=== PATIENT | female | born 1970 | race Caucasian/White ===

== ENCOUNTER 2019-01-30 00:16 | Emergency (ER) | payer BC, OTHER ==
[~2019-01-30] VITALS: Ht 157.5 cm; Wt 61.2 kg
--- OUTSIDE RECORDS SUMMARY | 2019-01-30 00:19 | XMS REPORT | Continuity of Care Document ---
Author Author [facility] Address Unknown Phone Unavailable Care Team Providers Care Senior Quality Methods Specialist Name Role Phone [facility] [place] [facility] Unavailable Unavailable Problems Problem Status Onset Date Classification Date Reported Comments Source Discharge Diagnosis: Abdominal pain 11/12/2016 11/15/2016 [facility] Discharge Diagnosis: IBS 11/12/2016 11/15/2016 [facility] ABD PAIN Active 11/11/2016 [facility] Abdominal pain Active Problem 11/15/2016 [facility] Cholelithiasis Active Problem 11/15/2016 [facility] Medications Medication Details Route Status Patient Instructions Ordering Provider Order Date Source tramadol hydrochloride 50 MG Oral Tablet 50 mg=1 tab, PO, Q6H, PRN Pain, X 10 day, # 40 tab, 0 Refill(s) Active 11/12/2016 [facility] potassium chloride 10 mEq, 100 mL, Route: IVPB, Drug form: INJ, Q1H, Dosing Weight 54.545, kg, Total Dose=20 meq, Start date: 11/12/16 2:00:00 CDT, Duration: 2 doses or times, Stop date: 11/12/16 3:00:00 CDT, Peripheral LineNotes: Infuse at a rate of 10 mEq/hr. (Same as: KCL) Inactive 11/12/2016 [facility] Benadryl 50 mg, Route: IVP, ONCE, Dosing Weight 54.545, kg, Priority: STAT, Start date: 11/12/16 1:28:00 CDT, Stop date: 11/12/16 1:28:00 CDT Inactive 11/12/2016 [facility] Solu-Medrol 125 mg, Route: IVP, ONCE, Dosing Weight 54.545, kg, Priority: STAT, Start date: 11/12/16 1:28:00 CDT, Stop date: 11/12/16 1:28:00 CDT Inactive 11/12/2016 [facility] Magnesium Sulfate 2 gm, 50 mL, Route: IVPB, Drug form: INJ, ONCE, Dosing Weight 54.545, kg, Start date: 11/12/16 1:12:00 CDT, Duration: 2 hr, Stop date: 11/12/16 1:12:00 CDTNotes: WASTE: F/P - Sink; E - Municipal Trash Bin Inactive 11/12/2016 [facility] Potassium Chloride 1.33 MEQ/ML Oral Solution 60 mEq, Route: PO, Drug form: LIQ, ONCE, Dosing Weight 54.545, kg, Priority: STAT, Start date: 11/12/16 1:12:00 CDT, Stop date: 11/12/16 1:12:00 CDT Inactive 11/12/2016 [facility] Saline Flush 0.9% 10 mL, Route: IVP, Drug Form: INJ, Dosing Weight 54.545, kg, PRN, PRN Line Flush, Start date: 11/11/16 23:18:00 CDT, Duration: 30 day, Stop date: 12/11/16 23:17:00 CDTNotes: (Same as: BD Posiflush) No Longer Active 11/12/2016 [facility] Allergies, Adverse Reactions, Alerts Substance Category Reaction Severity Reaction type Status Date Reported Comments Source hydrocodone Assertion Drug allergy Active [facility] iodine Assertion Drug allergy Active [facility] Latex Assertion Drug allergy Active [facility] sulfa drugs Assertion Drug allergy Active [facility] Immunizations No Data Provided for This Section Results Order Name Results Value Reference Range Date Interpretation Comments Source PARATHYROID PROFILE Ca Ion WB 1.16 1.05 - 1.25 11/12/2016 [facility] PARATHYROID PROFILE Ca Norm WB 1.12 1.05 - 1.25 11/12/2016 [facility] URINE AND STOOL UA Mucus Few /LPF None Seen /LPF 11/12/2016 [facility] URINE AND STOOL UA RBC 1 0 - 2 11/12/2016 [facility] URINE AND STOOL UA WBC 1 0 - 5 11/12/2016 [facility] URINE AND STOOL UA Sq Epi Occasional /LPF Few /LPF 11/12/2016 [facility] URINE AND STOOL UA Leuk Est Negative (11/12/16 12:14 AM) Negative 11/12/2016 [facility] URINE AND STOOL UA Protein Negative mg/dL Negative mg/dL 11/12/2016 [facility] URINE AND STOOL UA pH 6.0 5.0 - 8.0 11/12/2016 [facility] URINE AND STOOL UA Spec Grav 1.013 <=1.030 11/12/2016 [facility] URINE AND STOOL UA Turbidity Clear (11/12/16 12:14 AM) Clear 11/12/2016 [facility] URINE AND STOOL UA Urobilinogen <=1.0 mg/dL 0.1 - 1.0 11/12/2016 [facility] URINE AND STOOL UA Color Ltyellow 11/12/2016 [facility] URINE AND STOOL UA Nitrite Negative (11/12/16 12:14 AM) Negative 11/12/2016 [facility] URINE AND STOOL UA Blood Small *ABN* (11/12/16 12:14 AM) Negative 11/12/2016 [facility] URINE AND STOOL UA Bili Negative *NA* (11/12/16 12:14 AM) Negative 11/12/2016 [facility] URINE AND STOOL UA Ketones Negative mg/dL Negative mg/dL 11/12/2016 [facility] URINE AND STOOL UA Glucose Negative mg/dL Negative mg/dL 11/12/2016 [facility] URINE CHEM U Preg Negative (11/12/16 12:14 AM) Negative 11/12/2016 [facility] CHEM PANEL Lipase Lvl 109 73 - 393 11/12/2016 [facility] CHEM PANEL eGFR 129 11/12/2016 Result Comment: The eGFR is calculated using the CKD-EPI formula. In most young, healthy individuals the eGFR will be >90 mL/min/1.73m2. The eGFR declines with age. An eGFR of 60-89 may be normal in some populations, particularly the elderly, for whom the CKD-EPI formula has not been extensively validated. Use of the eGFR is not recommended in the following populations:

Individuals with unstable creatinine concentrations, including patients and those with serious co-morbid conditions.

Patients with extremes in muscle mass or diet.

The data above are obtained from the National Kidney Disease Education Program (NKDEP) which additionally recommends that when the eGFR is used in patients with extremes of body mass index for purposes of drug dosing, the eGFR should be multiplied by the estimated BMI. [facility] CHEM PANEL CO2 19 24 - 32 11/12/2016 [facility] CHEM PANEL AGAP 11.4 10.0 - 20.0 11/12/2016 [facility] CHEM PANEL Chloride Lvl 117 95 - 109 11/12/2016 [facility] CHEM PANEL Calcium Lvl 5.8 8.5 - 10.5 11/12/2016 Result Comment: Critical Result(s) called to josselin at 11/12/2016 00:19 by id. Read back OK. [facility] CHEM PANEL AST 10 0 - 37 11/12/2016 [facility] CHEM PANEL Potassium Lvl 2.4 3.5 - 5.1 11/12/2016 Result Comment: Critical Result(s) called to josselin at 11/12/2016 00:19 by id. Read back OK. [facility] CHEM PANEL Sodium Lvl 145 135 - 145 11/12/2016 [facility] CHEM PANEL Bili Total 0.2 0.2 - 1.3 11/12/2016 [facility] CHEM PANEL Alk Phos 39 39 - 136 11/12/2016 [facility] CHEM PANEL Glucose Lvl 69 70 - 99 11/12/2016 [facility] CHEM PANEL B/C Ratio 25 6 - 25 11/12/2016 [facility] CHEM PANEL BUN 9 7 - 22 11/12/2016 [facility] CHEM PANEL Creatinine Lvl 0.36 0.50 - 1.40 11/12/2016 [facility] CHEM PANEL ALT 17 0 - 65 11/12/2016 [facility] CHEM PANEL Globulin 2.3 2.7 - 4.2 11/12/2016 [facility] CHEM PANEL Total Protein 4.7 6.4 - 8.4 11/12/2016 [facility] CHEM PANEL A/G Ratio 1.0 0.7 - 1.6 11/12/2016 [facility] CHEM PANEL Albumin Lvl 2.4 3.5 - 5.0 11/12/2016 [facility] ENDOCRINOLOGY hCG Tot <1 11/12/2016 [facility] HEMATOLOGY Eosinophils # 0.3 0.0 - 0.5 11/12/2016 [facility] HEMATOLOGY Microcyte 1+ *ABN* (11/11/16 11:46 PM) None Seen 11/12/2016 [facility] HEMATOLOGY Monocytes 6.1 2.0 - 12.0 11/12/2016 [facility] HEMATOLOGY Lymphocytes # 2.6 1.0 - 5.5 11/12/2016 [facility] HEMATOLOGY Segs-Bands # 4.5 1.5 - 8.1 11/12/2016 [facility] HEMATOLOGY Basophils 0.6 0.0 - 1.0 11/12/2016 [facility] HEMATOLOGY Eosinophils 3.5 0.0 - 4.0 11/12/2016 [facility] [place][note 2] Monocytes # 0.5 0.0 - 0.8 11/12/2016 [facility] [place][note 2] Lymphocytes 32.9 20.0 - 40.0 11/12/2016 [facility] [place][note 2] Segs 56.9 45.0 - 75.0 11/12/2016 [facility] [place][note 2] MPV 9.1 7.4 - 10.4 11/12/2016 [facility] [place][note 2] RDW 18.5 11.5 - 14.5 11/12/2016 [facility] [place][note 2] Platelet 185 133 - 450 11/12/2016 [facility] [place][note 2] MCH 23.8 27.0 - 31.0 11/12/2016 [facility] [place][note 2] MCHC 32.2 32.0 - 36.0 11/12/2016 [facility] [place][note 2] Hct 36.3 36.0 - 48.0 11/12/2016 [facility] [place][note 2] MCV 74.0 80.0 - 98.0 11/12/2016 [facility] [place][note 2] RBC 4.91 4.20 - 5.40 11/12/2016 [facility] [place][note 2] Hgb 11.7 12.0 - 16.0 11/12/2016 [facility] [place][note 2] WBC 7.9 3.7 - 10.4 11/12/2016 [facility] Pathology Reports No Data Provided for This Section Diagnostic Reports Report Value Date Source Abdomen/Pelvis wo IV contrast CT CT ABDOMEN AND PELVIS WITHOUT CONTRAST DATED 11/12/2016. CLINICAL INDICATION: Right lower abdominal pain. COMPARISON: MR abdomen dated 01/22/2010 TECHNIQUE: A CT of the abdomen and pelvis was performed using helical images from the thoracic outlet through the pubic symphysis without bowel or intravenous contrast. Sagittal and coronal reconstructions were performed. CT Radiation Dose: JTY=[id number] mGy-cm FINDINGS: SOLID ORGANS: Solid organ assessment is limited in the absence of intravenous contrast. No acute CT abnormalities of the liver, spleen, pancreas, adrenal glands or kidneys are identified. There is no CT evidence of acute renal collecting system obstruction or calcified renal collecting system stone. BILIARY: The patient is status post cholecystectomy. No significant biliary ductal dilatation is identified. BOWEL: Bowel assessment is limited by the absence of bowel contrast. No intestinal dilatation is identified to suggest obstruction. The appendix is well-visualized and is not acutely inflamed. No diverticular disease is noted. PERITONEUM: There is no evidence of free intraperitoneal air. Trace free intraperitoneal fluid is identified in the pelvis. RETROPERITONEUM: The abdominal aorta is normal in caliber. No retroperitoneal mass or adenopathy. PELVIS: No abnormalities of the ovaries are adnexa are noted. The unopacified bladder is unremarkable. LOWER CHEST: The lung bases appear clear of acute disease. ADDITIONAL COMMENTS: None. IMPRESSION: 1. No acute CT abnormalities of the abdomen or pelvis are detected SL:[id number] 11/12/2016 [facility] Consultation Notes No Data Provided for This Section Discharge Summaries No Data Provided for This Section History and Physicals No Data Provided for This Section Vital Signs Vital Sign Value Date Comments Source Systolic (mm Hg) 125 11/12/2016 [facility] Diastolic (mm Hg) 76 11/12/2016 [facility] Respitory Rate 18 11/12/2016 [facility] Systolic (mm Hg) 125 11/12/2016 [facility] Diastolic (mm Hg) 76 11/12/2016 [facility] Respitory Rate 17 11/12/2016 [facility] Systolic (mm Hg) 149 11/12/2016 [facility] Diastolic (mm Hg) 76 11/12/2016 [facility] Respitory Rate 14 11/12/2016 [facility] Temperature Oral (F) 97.8 F 11/12/2016 [facility] Heart Rate 61 11/12/2016 [facility] Heart Rate 67 11/12/2016 [facility] Temperature Oral (F) 98.2 F 11/12/2016 [facility] Height 157.48 cm 11/12/2016 [facility] Weight 54.545 11/12/2016 [facility] BMI Calculated 21.99 11/12/2016 [facility] Encounters Location Location Details Encounter Type Encounter Number Reason For Visit Attending Provider ADM Date DC Date Status Source [facility] Emergency [id number] Fareed Nicholson 11/12/2016 11/12/2016 [facility] Procedures No Data Provided for This Section Assessment and Plan No Data Provided for This Section Plan of Care No Data Provided for This Section Social History Social History Date Source Social History TypeResponse Smoking Status Never smoker; Exposure to Tobacco Smoke None; Cigarette Smoking Last 365 Days No; Reg Smoking Cessation Counseling No 11/12/2016 [facility] Family History No Data Provided for This Section Advance Directives No Data Provided for This Section Functional Status No Data Provided for This Section
--- OUTSIDE RECORDS SUMMARY | 2019-01-30 00:19 | XMS REPORT | Summary of Care ---
Author Author [facility] Organization [facility] Address Unknown Phone Unavailable Encounter HQ [email or web address]) [id number] Date(s): 11/11/16 - 11/12/16 [facility] [address] [place] [address]- Discharge Diagnosis: Abdominal pain Discharge Diagnosis: IBS (irritable bowel syndrome) Discharge Disposition: Home or Self Care Attending Physician: Fareed Nicholson DO Vital Signs 1 2 3 Most recent to oldest [Reference Range]: 157.48 cm (11/11/16 11:12 PM) Height 97.8 DegF (11/12/16 12:34 AM) 98.2 DegF (11/11/16 11:12 PM) Temperature Oral [96.4-99.1 DegF] 125/76 mmHg (11/12/16 4:12 AM) 125/76 mmHg (11/12/16 3:15 AM) 149/76 mmHg *HI* (11/12/16 1:52 AM) Blood Pressure [90-140/60-90 mmHg] 18 BRMIN (11/12/16 4:12 AM) 17 BRMIN (11/12/16 3:15 AM) 14 BRMIN (11/12/16 1:52 AM) Respiratory Rate [14-20 BRMIN] 61 bpm (11/12/16 12:34 AM) 67 bpm (11/11/16 11:12 PM) Peripheral Pulse Rate [60-100 bpm] 54.545 kg (11/11/16 11:12 PM) Weight 21.99 m2 (11/11/16 11:12 PM) Body Mass Index Problem List Condition Effective Dates Status Health Status Informant Abdominal Active pain(Confirmed) Cholelithiasis(Confi Active rmed) Allergies, Adverse Reactions, Alerts Substance Reaction Severity Status hydrocodone Active iodine Active Latex Active sulfa drugs Active Medications Benadryl 50 mg, Route: IVP, ONCE, Dosing Weight 54.545, kg, Priority: STAT, Start date: 0 11/12/16 1:28:00 CDT, Stop date: 11/12/16 1:28:00 CDT Start Date: 11/12/16 Stop Date: 11/12/16 Status: Discontinued magnesium sulfate 2 gm in Water 50 ml 2 gm, 50 mL, Route: IVPB, Drug form: INJ, ONCE, Dosing Weight 54.545, kg, Start date: 11/12/16 1:12:00 CDT, Duration: 2 hr, Stop date: 11/12/16 1:12:00 CDT Notes: WASTE: F/P - Sink; E - Municipal Trash Bin Start Date: 11/12/16 Stop Date: 11/12/16 Status: Completed potassium chloride 10 mEq, 100 mL, Route: IVPB, Drug form: INJ, Q1H, Dosing Weight 54.545, kg, Tota l Dose=20 meq, Start date: 11/12/16 2:00:00 CDT, Duration: 2 doses or times, Sto p date: 11/12/16 3:00:00 CDT, Peripheral Line Notes: Infuse at a rate of 10 mEq/hr.(Same as: KCL) Start Date: 11/12/16 Stop Date: 11/12/16 Status: Pending Complete potassium chloride 20 mEq/15 mL oral liquid 60 mEq, Route: PO, Drug form: LIQ, ONCE, Dosing Weight 54.545, kg, Priority: STA T, Start date: 11/12/16 1:12:00 CDT, Stop date: 11/12/16 1:12:00 CDT Start Date: 11/12/16 Stop Date: 11/12/16 Status: Completed Saline Flush 0.9% 10 mL, Route: IVP, Drug Form: INJ, Dosing Weight 54.545, kg, PRN, PRN Line Flush , Start date: 11/11/16 23:18:00 CDT, Duration: 30 day, Stop date: 12/11/16 23:17 :00 CDT Notes: (Same as: BD Posiflush) Start Date: 11/11/16 Stop Date: 11/12/16 Status: Discontinued Solu-MEDROL 125 mg, Route: IVP, ONCE, Dosing Weight 54.545, kg, Priority: STAT, Start date: 11/12/16 1:28:00 CDT, Stop date: 11/12/16 1:28:00 CDT Start Date: 11/12/16 Stop Date: 11/12/16 Status: Discontinued tramadol 50 mg oral tablet 50 mg=1 tab, PO, Q6H, PRN Pain, X 10 day, # 40 tab, 0 Refill(s) Start Date: 11/12/16 Stop Date: 11/22/16 Status: Ordered Results ELECTROLYTES Most recent to 1 oldest [Reference Range]: Sodium Lvl [135-145 145 mEq/L mEq/L] (11/11/16 11:46 PM) Potassium Lvl 2.4 mEq/L 1 [3.5-5.1 mEq/L] *CRIT* (11/11/16 11:46 PM) Chloride Lvl [95-109 117 mEq/L mEq/L] *HI* (11/11/16 11:46 PM) CO2 [24-32 mEq/L] 19 mEq/L *LOW* (11/11/16 11:46 PM) AGAP [10.0-20.0 11.4 mEq/L mEq/L] (11/11/16 11:46 PM) 1Result Comment: Critical Result(s) called to josselin at 11/12/2016 00:19 by id. Read back OK. CHEM PANEL Most recent to 1 oldest [Reference Range]: Creatinine Lvl 0.36 mg/dL [0.50-1.40 mg/dL] *LOW* (11/11/16 11:46 PM) eGFR 129 mL/min/1.73m2 1 *NA* (11/11/16 11:46 PM) BUN [7-22 mg/dL] 9 mg/dL (11/11/16 11:46 PM) B/C Ratio [6-25] 25 (11/11/16 11:46 PM) Glucose Lvl [70-99 69 mg/dL mg/dL] *LOW* (11/11/16 11:46 PM) Total Protein 4.7 g/dL [6.4-8.4 g/dL] *LOW* (11/11/16 11:46 PM) Albumin Lvl [3.5-5.0 2.4 g/dL g/dL] *LOW* (11/11/16 11:46 PM) Globulin [2.7-4.2 2.3 g/dL g/dL] *LOW* (11/11/16 11:46 PM) A/G Ratio [0.7-1.6] 1.0 (11/11/16 11:46 PM) Calcium Lvl 5.8 mg/dL 2 [8.5-10.5 mg/dL] *CRIT* (11/11/16 11:46 PM) ALT [0-65 unit/L] 17 unit/L (11/11/16 11:46 PM) AST [0-37 unit/L] 10 unit/L (11/11/16 11:46 PM) Alk Phos [39-136 39 unit/L unit/L] (11/11/16 11:46 PM) Bili Total [0.2-1.3 0.2 mg/dL mg/dL] (11/11/16 11:46 PM) Lipase Lvl [73-393 109 unit/L unit/L] (11/11/16 11:46 PM) 1Result Comment: The eGFR is calculated using the [...] from the National Kidney Disease Education Program ( NKDEP) which additionally recommends that when the eGFR is used in patients with extremes of body mass index for purposes of drug dosing, the eGFR should be mul tiplied by the estimated BMI. 2Result Comment: Critical Result(s) called to josselin at 11/12/2016 00:19 by id. Read back OK. PARATHYROID PROFILE Most recent to 1 oldest [Reference Range]: Ca Ion WB [1.05-1.25 1.16 mMol/L mMol/L] (11/12/16 3:40 AM) Ca Norm WB 1.12 mMol/L [1.05-1.25 mMol/L] (11/12/16 3:40 AM) ENDOCRINOLOGY Most recent to 1 oldest [Reference Range]: hCG Tot <1 mIU/mL *NA* (11/11/16 11:46 PM) URINE CHEM Most recent to 1 oldest [Reference Range]: U Preg [Negative] Negative (11/12/16 12:14 AM) URINE AND STOOL Most recent to 1 oldest [Reference Range]: UA Turbidity [Clear] Clear (11/12/16 12:14 AM) UA Color Ltyellow *NA* (11/12/16 12:14 AM) UA pH [5.0-8.0] 6.0 (11/12/16 12:14 AM) UA Spec Grav 1.013 [<=1.030] (11/12/16 12:14 AM) UA Glucose [Negative Negative mg/dL mg/dL] *NA* (11/12/16 12:14 AM) UA Blood [Negative] Small *ABN* (11/12/16 12:14 AM) UA Ketones [Negative Negative mg/dL mg/dL] *NA* (11/12/16 12:14 AM) UA Protein [Negative Negative mg/dL mg/dL] (11/12/16 12:14 AM) UA Urobilinogen <=1.0 mg/dL [0.1-1.0 mg/dL] *NA* (11/12/16 12:14 AM) UA Bili [Negative] Negative *NA* (11/12/16 12:14 AM) UA Leuk Est Negative [Negative] (11/12/16 12:14 AM) UA Nitrite Negative [Negative] (11/12/16 12:14 AM) UA WBC [0-5 /HPF] 1 /HPF (11/12/16 12:14 AM) UA RBC [0-2 /HPF] 1 /HPF (11/12/16 12:14 AM) UA Sq Epi [Few /LPF] Occasional /LPF *NA* (11/12/16 12:14 AM) UA Mucus [None Seen Few /LPF /LPF] *NA* (11/12/16 12:14 AM) HEMATOLOGY Most recent to 1 oldest [Reference Range]: WBC [3.7-10.4 K/CMM] 7.9 K/CMM (11/11/16 11:46 PM) RBC [4.20-5.40 4.91 M/CMM M/CMM] (11/11/16 11:46 PM) Hgb [12.0-16.0 g/dL] 11.7 g/dL *LOW* (11/11/16:46 PM) Hct [36.0-48.0 %] 36.3 % (11/11/16 11:46 PM) MCV [80.0-98.0 fL] 74.0 fL *LOW* (11/11/16 11:46 PM) MCH [27.0-31.0 pg] 23.8 pg *LOW* (11/11/16 11:46 PM) MCHC [32.0-36.0 32.2 g/dL g/dL] (11/11/16 11:46 PM) RDW [11.5-14.5 %] 18.5 % *HI* (11/11/16 11:46 PM) Platelet [133-450 185 K/CMM K/CMM] (11/11/16 11:46 PM) MPV [7.4-10.4 fL] 9.1 fL (11/11/16 11:46 PM) Segs [45.0-75.0 %] 56.9 % (11/11/16 11:46 PM) Lymphocytes 32.9 % [20.0-40.0 %] (11/11/16 11:46 PM) Monocytes [2.0-12.0 6.1 % %] (11/11/16 11:46 PM) Eosinophils [0.0-4.0 3.5 % %] (11/11/16 11:46 PM) Basophils [0.0-1.0 0.6 % %] (11/11/16 11:46 PM) Segs-Bands # 4.5 K/CMM [1.5-8.1 K/CMM] (11/11/16 11:46 PM) Lymphocytes # 2.6 K/CMM [1.0-5.5 K/CMM] (11/11/16 11:46 PM) Monocytes # [0.0-0.8 0.5 K/CMM K/CMM] (11/11/16 11:46 PM) Eosinophils # 0.3 K/CMM [0.0-0.5 K/CMM] (11/11/16 11:46 PM) Microcyte [None 1+ Seen] *ABN* (11/11/16 11:46 PM) Immunizations No data available for this section Procedures No data available for this section Social History Social History Type Response Smoking Status Never smoker; Exposure to Tobacco Smoke None; Cigarette Smoking Last 365 Days No; Reg Smoking Cessation Counseling No Assessment and Plan No data available for this section
[2019-01-30] MEDS ORDERED: ACETAMIN/BUTALBITAL/CAFFEINE TAB PO ONE (01:00)
[2019-01-30] MEDS ORDERED: METOCLOPRAMIDE HCL 10 MG TAB PO ONE (01:00)
[2019-01-30] MEDS ORDERED: ACETAMIN/BUTALBITAL/CAFFEINE TAB ONE (01:01)
[2019-01-30] MEDS ORDERED: METOCLOPRAMIDE HCL 10 MG TAB ONE (01:01)
--- NOTE | 2019-01-30 01:29 | Diagnostic Imaging Report ---
EXAMINATION: Head CT without contrast. HISTORY:Headache, hypertension. COMPARISON: Report of CT head from 12/27/2012, images not available for comparison at the time of interpretation. TECHNIQUE: Multidetector axial images were obtained from the foramen magnum to the vertex without contrast. The images were reconstructed using brain and bone algorithms. Thin section brain images were reformatted into coronal and sagittal planes. Dose modulation, iterative reconstruction, and/or weight based adjustment of the mA/kV was utilized to reduce the radiation dose to as low as reasonably achievable. Intravenous contrast: None IMAGE QUALITY: Acceptable. FINDINGS: Skull/scalp: No lytic or blastic. lesions. No surgical changes. Parenchyma: No abnormal density. No acute hemorrhage, mass or acute major vascular territorial infarct. Arteries: No density suggestive of thrombosis. Dural sinuses: No abnormal density suggestive of thrombosis. Ventricles: No hydrocephalus or displacement. Extra-axial spaces: No abnormal density. Brain volume: Normal for age. Craniocervical junction: No mass, Chiari malformation, or basilar invagination. Sella: No mass. Paranasal/mastoid sinuses: Imaged portions unremarkable. IMPRESSION: No intracranial abnormality. Signed by: Dr. Dawn Farris M.D. on 01/30/2019 1:25 AM
== END 2019-01-30 01:47 | disposition home or self-care (01) ==
LOC: ER 00:16
DX: G43.011 Migraine without aura, intractable, with status migrainosus (principal); I10 Essential (primary) hypertension
CPT/HCPCS: 70450; 99283; J8597